=== PATIENT | female | born 1990 | race African-American/Black ===

== ENCOUNTER 2017-09-06 19:19 | Emergency (ER) | payer OTHER ==
[~2017-09-06] VITALS: Ht 170.2 cm; Wt 77.8 kg
[2017-09-06 19:29] VITALS: TEMP 37.1; Ht 170.2 cm; Wt 77.8 kg
[2017-09-06] MEDS ORDERED: SODIUM CHLORIDE 0.9% 1000ML 1,000 ML IV STA (19:58)
[2017-09-06] MEDS ORDERED: ONDANSETRON INJ 2 MG/ML 2 ML VIAL IV STA (19:58)
[2017-09-06 20:32] LABS: BASO % 0.1 %; BASO ABS # 0.01 K/uL (0-0.2); HEMATOCRIT 41.8 % (37-47); HEMOGLOBIN 14.6 g/dL (12.0-16.0); IG# 0.01 K/uL (0.00-0.02); LYMPH % 10.5 %; LYMPH ABS # 0.71 K/uL (1.2-3.4); MEAN CELL VOLUME 91.9 fL (80-100); MEAN CORPUSCULAR HEMOGLOBIN 32.1 pg (25-34); MEAN CORPUSCULAR HGB CONC 34.9 g/dl (32-36); MEAN PLATELET VOLUME 9.7 fL (7.4-10.4); MONO % 4.3 %; MONO ABS # 0.29 K/uL (0.11-0.59); NEUT ABS # 5.76 K/uL (1.4-6.5); PLATELET COUNT 245 K/uL (130-400); RED CELL DISTRIBUTION WIDTH CV 12.9 % (11.5-14.5); WHITE BLOOD COUNT 6.78 K/uL (4.8-10.8)
[2017-09-06 20:49] LABS: ALBUMIN 3.6 gm/dl (3.4-5.0); CALCIUM 8.6 mg/dl (8.5-10.1); CREATININE 0.9 mg/dl (0.60-1.20); POTASSIUM 3.5 mmol/L (3.5-5.1)
[2017-09-06 20:52] LABS: MONOSPOT NEG (NEG)
[2017-09-06 20:59] LABS: TOTAL PROTEIN 8.3 gm/dl (6.4-8.2)
[2017-09-06] MEDS ORDERED: ONDA4TAB10 SL (21:27)
[2017-09-06] MEDS ORDERED: ONDANSETRON HOME PACK 4MG OD TAB PO ONE (21:30)
[2017-09-06 21:48] VITALS: BP 114/66; PULSE 87; O2SAT 98
[2017-09-06 21:54] LABS: INFLUENZA B ANTIGEN Neg for Influ B (NEG)
--- NOTE | 2017-09-07 00:05 | EMERGENCY ROOM VISIT NOTE ---
History Report prepared by Juli: Sandy Erickson Under the Supervision of: Dr. Russ Theodore M.D. First contact with patient: 19:50 Chief Complaint: FLU LIKE SX Stated Complaint: VOMITING,LOSS OF APPITITE,FEVER,DIARRHEA History of Present Illness The patient is a 26 year old female who presents to the Emergency Room with complaints of constant flu like symptoms beginning in June. She states her body tiredness and loss of appetite began in June and her vomiting, diarrhea , and left sided abdominal pain began today. When asked, she thinks she has a fever but she has not taken her temperature and she has felt hot since June. She has not seen a doctor. The patient states her sinus issues began in June and she has allergies. She denies any medical problems, hematochezia, urinary symptoms, abnormal vaginal discharge, any chance of , recent foreign travel, being around anyone who is sick, tick bites, rashes, or antibiotic use. Source of History: patient Onset: June Position: other (global) Quality: other (flu like symptoms ) Timing: constant Associated Symptoms: + fevers (subjective), + vomiting, + abdominal pain ( left sided), + diarrhea, No hematochezia, No urinary symptoms, No rash Note: Negative abnormal vaginal discharge, any chance of , recent [place] travel, being around anyone who is sick, tick bites, or any antibiotic use. Review of Systems See HPI for pertinent positives & negatives. A total of 10 systems reviewed and were otherwise negative. Past Medical & Surgical Medical Problems: (1) No Known Active Medical Problems Family History Hypertension Social History Smoking Status: Never Smoker Alcohol Use: none Drug Use: none Marital Status: single Housing Status: lives with roommate Occupation Status: [employer] Current/Historical Medications Scheduled Ondasetron Odt (Zofran Odt), 4 MG SL Q6H Allergies Coded Allergies: Fish (Unverified Allergy, Intermediate, ITCHING, 02/13/16) Peanut (Unverified Allergy, Intermediate, ITCHY, 02/13/16) Aspirin (Verified Allergy, Unknown, facial swelling, 02/13/16) Physical Exam Vital Signs Date Time Temp Pulse Resp B/P (MAP) Pulse Ox O2 Delivery O2 Flow Rate FiO2 09/06/17 21:48 87 20 114/66 98 09/06/17 20:46 57 14 107/58 97 Room Air 09/06/17 19:29 37.1 81 18 126/80 100 Room Air Physical Exam Constitutional: Vital signs reviewed. Eyes: Pupils are equal round reactive to light. Conjunctiva are noninjected. ENT: Pharynx is clear without erythema or exudate. Mucous membranes are moist. Neck supple without meningeal signs. Respiratory: Clear to auscultation bilaterally. Breath sounds are equal bilaterally. Cardiovascular: Regular rate and rhythm. No rubs or gallops. GI: Soft, nondistended and nontender. Bowel sounds are present. Musculoskeletal: No peripheral edema. No lower extremity tenderness. Integumentary: No cyanosis. Neurological: The patient is awake and alert. No focal deficits. Psychiatric: Normal affect. Medical Decision & Procedures Laboratory Results 09/06/17 20:10 Red Blood Count 4.55, Mean Corpuscular Volume 91.9, Mean Corpuscular Hemoglobin 32.1, Mean Corpuscular Hemoglobin Concent 34.9, Mean Platelet Volume 9.7, Neutrophils (%) (Auto) 85.0, Lymphocytes (%) (Auto) 10.5, Monocytes (%) (Auto) 4.3, Eosinophils (%) (Auto) 0.0, Basophils (%) (Auto) 0.1, Neutrophils # (Auto) 5.76, Lymphocytes # (Auto) 0.71, Monocytes # (Auto) 0.29, Eosinophils # (Auto) 0.00, Basophils # (Auto) 0.01 09/06/17 20:10 Test 09/06/17 20:10 09/06/17 20:54 White Blood Count 6.78 K/uL (4.8-10.8) Red Blood Count 4.55 M/uL (4.2-5.4) Hemoglobin 14.6 g/dL (12.0-16.0) Hematocrit 41.8 % (37-47) Mean Corpuscular Volume 91.9 fL (80-100) Mean Corpuscular Hemoglobin 32.1 pg (25-34) Mean Corpuscular Hemoglobin Concent 34.9 g/dl (32-36) Platelet Count 245 K/uL (130-400) Mean Platelet Volume 9.7 fL (7.4-10.4) Neutrophils (%) (Auto) 85.0 % Lymphocytes (%) (Auto) 10.5 % Monocytes (%) (Auto) 4.3 % Eosinophils (%) (Auto) 0.0 % Basophils (%) (Auto) 0.1 % Neutrophils # (Auto) 5.76 K/uL (1.4-6.5) Lymphocytes # (Auto) 0.71 K/uL (1.2-3.4) Monocytes # (Auto) 0.29 K/uL (0.11-0.59) Eosinophils # (Auto) 0.00 K/uL (0-0.5) Basophils # (Auto) 0.01 K/uL (0-0.2) RDW Standard Deviation 43.0 fL (36.4-46.3) RDW Coefficient of Variation 12.9 % (11.5-14.5) Immature Granulocyte % (Auto) 0.1 % Immature Granulocyte # (Auto) 0.01 K/uL (0.00-0.02) Anion Gap 6.0 mmol/L (3-11) Est Creatinine Clear Calc Drug Dose 102.7 ml/min Estimated GFR () 103.0 Estimated GFR (Non- 88.9 BUN/Creatinine Ratio 10.4 (10-20) Calcium Level 8.6 mg/dl (8.5-10.1) Total Bilirubin 0.5 mg/dl (0.2-1) Direct Bilirubin 0.1 mg/dl (0-0.2) Aspartate Amino Transf (AST/SGOT) 23 U/L (15-37) Alanine Aminotransferase (ALT/SGPT) 18 U/L (12-78) Alkaline Phosphatase 62 U/L (45-117) Total Protein 8.3 gm/dl (6.4-8.2) Albumin 3.6 gm/dl (3.4-5.0) Thyroid Stimulating Hormone (TSH) 0.414 uIu/ml (0.300-4.500) Free Thyroxine 0.91 ng/dl (0.80-1.60) Lyme Disease IgG Antibody NEG (NEG) Lyme Disease IgM Antibody NEG (NEG) Monoscreen NEG (NEG) Influenza Type A Antigen Neg for Influ A (NEG) Influenza Type B Antigen Neg for Influ B (NEG) Laboratory results as reviewed by me. Medications Administered Medications (Trade) Dose Ordered Sig/Lou Route Start Time Stop Time Status Last Admin Dose Admin Sodium Chloride 1,000 ml @ 999 mls/hr Q1H1M STAT IV 09/06/17 19:58 09/06/17 20:58 DC 09/06/17 20:41 999 MLS/HR Ondansetron HCl (Zofran Inj) 4 mg NOW STAT IV 09/06/17 19:58 09/06/17 20:01 DC 09/06/17 20:40 4 MG Ondansetron HCl (ZOFRAN ODT 4MG Home Pack) 1 homepack UD ONCE PO 09/06/17 21:30 09/06/17 21:31 DC 09/06/17 21:48 1 HOMEPACK ED Course 1952: The patient was evaluated in room B9. A complete history and physical exam was performed. 1957: Ordered Zofran Inj 4 mg IV, Sodium Chloride 1000 ml @ 999 mls/hr IV 2118: I checked on the patient at this time and she is no longer nauseated. I also discussed her test results with her. 2124: I talked to her about her negative Lyme test. She will follow up. She verbalized agreement of the treatment plan. She was discharged home. 2129: Ondansetron HCl 1 homepack PO Medical Decision This is a 26-year-old female who presents with generalized fatigue and tactile fevers for several months and vomiting and diarrhea starting today. Differential diagnosis includes foodborne illness, gastroenteritis, dehydration , electrolyte abnormality, Lyme disease, metabolic derangement. I did perform a limited focused review of portions of the patient's old chart on the electronic medical record. The patient has had no recent pertinent visits to this hospital. I did evaluate the patient as noted above. IV access was established. I did treat her with Zofran and normal saline IV. I did order and review the patient' s blood work as noted in the electronic medical record. Her white blood cell count is not elevated. Electrolytes and TFTs are unremarkable. Lyme testing is negative. Monospot testing is negative. Rapid flu testing is negative. I did discuss the test results with the patient. The cause of her fatigue is unclear. I believe her vomiting and diarrhea is likely from a stomach virus. I did recommend she follow-up with [facility] or her regular doctor. She was given prescriptions for Zofran. Medication Reconcilliation Current Medication List: was personally reviewed by me Blood Pressure Screening Patient's blood pressure: Normal blood pressure Impression Primary Impression: Vomiting and diarrhea Additional Impression: Fatigue Scribe Attestation The scribe's documentation has been prepared under my direct and personally reviewed by me in its entirety. I confirm that the note above accurately reflects all work, treatment, procedures, and medical decision making performed by me. Departure Information Dispostion Home / Self-Care Prescriptions Ondasetron Odt (ZOFRAN ODT) 4 Mg Tab 4 MG SL Q6H for Nausea, #6 TAB Prov: Russ Theodore M.D. 09/06/17 Referrals RV. Magallon MD (PCP) Forms HOME CARE DOCUMENTATION FORM, IMPORTANT VISIT INFORMATION Patient Instructions My [facility] Additional Instructions You have been examined and treated today on an emergency basis only. This is not a substitute for, or an effort to provide, complete comprehensive medical care. It is impossible to recognize and treat all injuries or illnesses in a single emergency department visit. It is therefore important that you follow up closely with your physician or S. Call as soon as possible for an appointment. Return for worsening symptoms or if you develop any other concerning symptoms. Problem Qualifiers Additional Impression: Fatigue Fatigue type: unspecified Qualified Codes: R53.83 - Other fatigue
== END 2017-09-06 21:50 | disposition home or self-care (01) ==
LOC: C.EDB 19:20 → C.EDC 21:50
DX: R11.10 Vomiting, unspecified (principal); R19.7 Diarrhea, unspecified; R53.83 Other fatigue; Z82.49 Family history of ischemic heart disease and other diseases of the circulatory system; Z88.6 Allergy status to analgesic agent; Z91.010 Allergy to peanuts; Z91.013 Allergy to seafood